=== PATIENT | male | born 1980 | race Caucasian/White ===

== ENCOUNTER 2023-08-07 03:20 | Observation (INO) | payer OTHER ==
[2023-08-07 03:41] LABS: Appearance,Urine Clear (Clear); Bilirubin,Urine Negative (Negative); Blood,Urine Negative (Negative); Color,Urine Light Yellow; Glucose,Urine (UA) Negative (Negative); Ketones,Urine Negative (Negative); Leukocyte Esterase,Urine Negative (Negative); Nitrite,Urine Negative (Negative); PH, Urine 5.5 (5.0-8.0); Protein,Urine Negative (Negative); Specific Gravity,Urine 1.022 (1.001-1.035); Urobilinogen,Urine <2.0 mg/dL (<2.0)
--- NOTE | 2023-08-07 03:51 | ED ---
Abdominal Pain HPI - General Source: patient Mode of arrival: ambulatory Limitations: no limitations <Dick Carrasquillo - Last Filed: 08/07/23 03:50> <Luca Ramos - Last Filed: 08/07/23 06:37> <Toño Waters - Last Filed: 08/07/23 08:55> - General Chief Complaint: Abdominal Pain Stated Complaint: ABD PAIN Time Seen by Provider: 08/07/23 03:50 - History of Present Illness Initial Comments: 43-year-old male presenting with chief complaint of right upper quadrant pain. Has been intermittent over the last 3 days but tonight the pain is constant. Admits to nausea with no vomiting. (Dick Carrasquillo) Dictation was produced using LRN dictation software. please excuse any gr ammatical, word or spelling errors. Chief Complaint: 43-year-old male presents to the ER for further quadrant abdominal pain History of Present Illness: Patient 43-year-old male with co morbiditiesvelocitiesbeenhavingrightupperquadrantabdominalpain.Statesthatit'srib quadrantepigastric.A ssociatedwithnausea.Statesthattodaywasreallybadhehadsomepizzaandstartedtohavesev ererightupperquadran tabdominalpain.Nofever.Nochangesinhisbowelhabits.Deniesanyhistoryofabdominalsurg tanvi. The ROS documented in this emergency department record has been reviewed and confirmed by me. Those systems with pertinent positive or negative responses have been documented in the HPI. All other systems are other negative and/or noncontributory. (Luca Ramos) - Related Data Allergies Allergy/AdvReac Type Severity Reaction Status Date / Time No Known Allergies Allergy Verified 08/07/23 03:26 Review of Systems ROS Other: All systems not noted in ROS Statement are negative. <Dick Carrasquillo - Last Filed: 08/07/23 03:50> ROS Other: All systems not noted in ROS Statement are negative. <Luca Ramos - Last Filed: 08/07/23 06:37> ROS Other: All systems not noted in ROS Statement are negative. <Toño Waters - Last Filed: 08/07/23 08:55> ROS Statement: Those systems with pertinent positive or pertinent negative responses have been documented in the HPI. Past Medical History Past Medical History: No Reported History History of Any Multi-Drug Resistant Organisms: None Reported Past Surgical History: No Surgical Hx Reported Past Psychological History: No Psychological Hx Reported Smoking Status: Never smoker Past Alcohol Use History: None Reported Past Drug Use History: None Reported <Dick Carrasquillo - Last Filed: 08/07/23 03:50> General Exam Limitations: no limitations <Dick Carrasquillo - Last Filed: 08/07/23 03:50> <Luca Ramos - Last Filed: 08/07/23 06:37> - General Exam Comments Initial Comments: Visual Physical Exam Vital signs reviewed General: Well-appearing, nontoxic, no acute distress. Head: Normocephalic, atraumatic Eyes: PERRLA, EOMI ENT: Airway patent Chest: Nonlabored breathing Skin: No visual rash, normal skin tone Neuro: Alert and oriented 3 Musculoskeletal: No gross abnormalities (Dick Carrasquillo) PHYSICAL EXAM: General Impression: Alert and oriented x3, not in acute distress HEENT: Normocephalic atraumatic, extra-ocular movements intact, pupils equal and reactive to light bilaterally, mucous membranes moist. Cardiovascular: Heart regular rate and rhythm Chest: Able to complete full sentences, no retractions, no tachypnea Abdomen: abdomen soft, positive Kolb sign, non-distended, no organomegaly Musculoskeletal: Pulses present and equal in all extremities, no peripheral edema Motor: no focal deficits noted Neurological: CN II-XII grossly intact, no focal motor or sensory deficits noted Skin: Intact with no visualized rashes Psych: Normal affect and mood (Luca Ramos) Course Vital Signs 08/07/23 03:24 Temperature 98.7 F Pulse Rate 74 Respiratory 20 Rate Blood Pressure 189/96 O2 Sat by Pulse 98 Oximetry Medical Decision Making <Dick Carrasquillo - Last Filed: 08/07/23 03:50> - Lab Data Result diagrams: 08/07/23 03:30 08/07/23 03:30 <Luca Ramos - Last Filed: 08/07/23 06:37> - Lab Data Result diagrams: 08/07/23 03:30 08/07/23 03:30 <Toño Waters - Last Filed: 08/07/23 08:55> - Medical Decision Making I performed the quick note portion of this visit electronically signed Dick Carrasquillo PA-C (Dick Carrasquillo) Was pt. sent in by a medical professional or institution (, PA, CAMPUS RECRUITING INTERN, urgent care, hospital, or halfway...) When possible be specific @ -No Did you speak to anyone other than the patient for history (EMS, parent, family, police, friend...)? What history was obtained from this source @ -No Did you review nursing and triage notes (agree or disagree)? Why? @ -I reviewed and agree with nursing and triage notes Were old charts reviewed (outside hosp., previous admission, EMS record, old EKG, old radiological studies, urgent care reports/EKG's, halfway records)? Report findings @ -No old charts were reviewed Differential Diagnosis (chest pain, altered mental status, abdominal pain women, abdominal pain men, vaginal bleeding, musculoskeletal, weakness, fever, dyspnea, syncope, headache, dizziness, GI bleed, back pain, seizure, CVA, palpatations, mental health)? @ -Differential Abdominal Pain Men: Appendicitis, cholecystitis, diverticulosis, ischemic bowel, pancreatitis, hepatitis, UTI, gastroenteritis, AAA, incarcerated hernia, bowel obstruction, constipation, inflammatory bowel, hepatitis, peptic ulcer disease, splenic infarction, perforated viscus, testicular torsion, this is not meant to be an all-inclusive list EKG interpreted by me (3pts min.). @ -None done X-rays interpreted by me (1pt min.). @ -None done CT interpreted by me (1pt min.). @ -None done U/S interpreted by me (1pt. min.). @ -None done What testing was considered but not performed or refused? (CT, X-rays, U/S, labs)? Why? @ -None What meds were considered but not given or refused? Why? @ -None Did you discuss the management of the patient with other professionals (professionals i.e. , JOAN, CAMPUS RECRUITING INTERN, lab, RT, psych nurse, director of social services, field administrative assistant, teacher, protection officer, case packer and sealer)? Give summary @ -No Was smoking cessation discussed for >3mins.? @ -No Was critical care preformed (if so, how long)? @ -No Were there social determinants of health that impacted care today? How? (Homelessness, low income, unemployed, alcoholism, drug addiction, transportation, low edu. Level, literacy, decrease access to med. care, fdc, rehab)? @ -No Was there de-escalation of care discussed even if they declined (Discuss DNR or withdrawal of care, Hospice)? DNR status @ -No What co-morbidities impacted this encounter? (DM, HTN, Smoking, COPD, CAD, Cancer, CVA, ARF, Chemo, Hep., AIDS, mental health diagnosis, sleep apnea, morbid obesity)? @ -None Was patient admitted / discharged? Hospital course, mention meds given and route, prescriptions, significant lab abnormalities, going to OR and other pertinent info. @ -43-year-old male presents with acute right upper quadrant abdominal pain. Vital signs are stable. Laboratory evaluation is unremarkable. Abdominal labs negative. Urinalysis negative. Pending abdominal ultrasound Undiagnosed new problem with uncertain prognosis? @ -No Drug Therapy requiring intensive monitoring for toxicity (Heparin, Nitro, Insulin, Cardizem)? @ -No Were any procedures done? @ -No Diagnosis/symptom? Acute, or Chronic, or Acute on Chronic? Uncomplicated (without systemic symptoms) or Complicated (systemic symptoms)? @ -Acute abdominal pain Side effects of treatment? @ -No Exacerbation, Progression, or Severe Exacerbation? @ -No Poses a threat to life or bodily function? How? (Chest pain, USA, CO, pneumonia, PE, COPD, DKA, ARF, appy, cholecystitis, CVA, Diverticulitis, Homicidal, Suicidal, threat to staff... and all critical care pts) @ -yes (Luca Ramos) Was patient admitted / discharged? Hospital course, mention meds given and route, prescriptions, significant lab abnormalities, going to OR and other pertinent info. @ -Patient was signed out to me by Dr. Ramos and ultrasound came back and it showed acute cholecystitis I spoke with the surgeon furniture sales consultant Dr. Nino and he agreed to admit the patient I started the patient had Biaxin admitted the patient wrote admitting orders Undiagnosed new problem with uncertain prognosis? @ -No Drug Therapy requiring intensive monitoring for toxicity (Heparin, Nitro, Insulin, Cardizem)? @ -No Were any procedures done? @ -No Diagnosis/symptom? @ -Acute cholecystitis Acute, or Chronic, or Acute on Chronic? @ -Acute Uncomplicated (without systemic symptoms) or Complicated (systemic symptoms)? @ -Complicated Side effects of treatment? @ -No Exacerbation, Progression, or Severe Exacerbation? @ -No Poses a threat to life or bodily function? How? (Chest pain, USA, CO, pneumonia, PE, COPD, DKA, ARF, appy, cholecystitis, CVA, Diverticulitis, Homicidal, Suicidal, threat to staff... and all critical care pts) @ -Yes this can lead to sepsis and is urinating dysfunction (Toño Waters) - Lab Data Lab Results 08/07/23 08/07/23 08/07/23 Range/Units 03:30 03:30 03:30 WBC 11.2 H (3.8-10.6) k/uL RBC 5.33 (4.30-5.90) m/uL Hgb 15.5 (13.0-17.5) gm/dL Hct 47.8 (39.0-53.0) % MCV 89.7 (80.0-100.0) fL MCH 29.1 (25.0-35.0) pg MCHC 32.5 (31.0-37.0) g/dL RDW 12.9 (11.5-15.5) % Plt Count 319 (150-450) k/uL MPV 7.2 Neutrophils % 63 % Lymphocytes % 26 % Monocytes % 5 % Eosinophils % 3 % Basophils % 1 % Neutrophils # 7.1 (1.3-7.7) k/uL Lymphocytes # 2.9 (1.0-4.8) k/uL Monocytes # 0.5 (0-1.0) k/uL Eosinophils # 0.4 (0-0.7) k/uL Basophils # 0.1 (0-0.2) k/uL Sodium 144 (137-145) mmol/L Potassium 4.4 (3.5-5.1) mmol/L Chloride 111 H (98-107) mmol/L Carbon Dioxide 27 (22-30) mmol/L Anion Gap 6 mmol/L BUN 23 H (9-20) mg/dL Creatinine 0.90 (0.66-1.25) mg/dL Est GFR (CKD-EPI)AfAm >90 (>60 ml/min/1.73 sqM) Est GFR (CKD-EPI)NonAf >90 (>60 ml/min/1.73 sqM) Glucose 114 H (74-99) mg/dL Calcium 9.8 (8.4-10.2) mg/dL Total Bilirubin 0.3 (0.2-1.3) mg/dL AST 30 (17-59) U/L ALT 55 H (4-49) U/L Alkaline Phosphatase 72 (38-126) U/L Total Protein 7.2 (6.3-8.2) g/dL Albumin 4.5 (3.5-5.0) g/dL Amylase 61 (30-110) U/L Lipase 74 (23-300) U/L Urine Color Light Yellow Urine Appearance Clear (Clear) Urine pH 5.5 (5.0-8.0) Ur Specific Krebs 1.022 (1.001-1.035) Urine Protein Negative (Negative) Urine Glucose (UA) Negative (Negative) Urine Ketones Negative (Negative) Urine Blood Negative (Negative) Urine Nitrite Negative (Negative) Urine Bilirubin Negative (Negative) Urine Urobilinogen <2.0 (<2.0) mg/dL Ur Leukocyte Esterase Negative (Negative) Disposition <Dick Carrasquillo - Last Filed: 08/07/23 03:50> <Luca Ramos - Last Filed: 08/07/23 06:37> Time of Disposition: 08:55 <Toño Waters - Last Filed: 08/07/23 08:55> Clinical Impression: Acute cholecystitis Disposition: ADMITTED IP TO THIS [facility] Referrals: Pernell Esparza DO [Primary Care Provider] - 1-2 days
[2023-08-07 03:53] LABS: Basophils # (A) 0.1 k/uL (0-0.2); Basophils % (A) 1 %; Eosinophils # (A) 0.4 k/uL (0-0.7); Eosinophils % (A) 3 %; HCT 47.8 % (39.0-53.0); HGB 15.5 gm/dL (13.0-17.5); Lymphocytes # (A) 2.9 k/uL (1.0-4.8); Lymphocytes % (A) 26 %; MCH 29.1 pg (25.0-35.0); MCHC 32.5 g/dL (31.0-37.0); MCV 89.7 fL (80.0-100.0); Mean Platelet Volume 7.2; Monocytes # (A) 0.5 k/uL (0-1.0); Monocytes % (A) 5 %; Neutrophils # (A) 7.1 k/uL (1.3-7.7); Neutrophils % (A) 63 %; Platelet Count 319 k/uL (150-450); RBC 5.33 m/uL (4.30-5.90); RDW 12.9 % (11.5-15.5); WBC 11.2 k/uL (3.8-10.6)
[2023-08-07 04:27] LABS: ALT 55 U/L (4-49); AST 30 U/L (17-59); African American GFR (CKD) >90 (>60 ml/min/1.73 sqM); Albumin 4.5 g/dL (3.5-5.0); Alkaline Phosphatase 72 U/L (38-126); Amylase 61 U/L (30-110); Anion Gap 6 mmol/L; Blood Urea Nitrogen 23 mg/dL (9-20); Calcium 9.8 mg/dL (8.4-10.2); Carbon Dioxide 27 mmol/L (22-30); Chloride 111 mmol/L (98-107); Glucose 114 mg/dL (74-99); Lipase 74 U/L (23-300); Non-African American GFR(CKD) >90 (>60 ml/min/1.73 sqM); Potassium 4.4 mmol/L (3.5-5.1); Sodium 144 mmol/L (137-145); Total Bilirubin 0.3 mg/dL (0.2-1.3); Total Protein 7.2 g/dL (6.3-8.2)
--- NOTE | 2023-08-07 07:51 | US ---
EXAMINATION TYPE: US abdomen limited DATE OF EXAM: 08/07/2023 COMPARISON: NONE CLINICAL INDICATION: Male, 43 years old with history of epigastric pain, ruq pain; RUQ pain n/v TECHNIQUE: Multiple sonographic images of the right upper quadrant are obtained. FINDINGS: EXAM MEASUREMENTS: Liver Length: 14.3 cm Gallbladder Wall: 0.6 cm CBD: obscured by shadowing stone Right Kidney: 11.6x4.7x5.8 cm JUNIOR FINANCIAL ANALYST NOTES: Pancreas: Tail obscured by overlying bowel gas Liver: increased echogenicity and attenuation Gallbladder: several stones measuring up to 2.3cm stone near neck of GB, two adhered stones vs sludg e located at fundus. Pericholecystic fluid is present adjacent to thickened GB wall Evidence for sonographic Kolb's sign: No CBD: Obscured by shadowing stone and bowel gas Right Kidney: No hydronephrosis or masses seen exam slightly limited by body habitus, bowel, and shadowing IMPRESSION: Despite the negative sonographic Kolb sign, the findings are consistent with acute cholecystitis wi th cholelithiasis, gallbladder wall thickening and pericholecystic fluid. Evaluation of the common bi le duct and pancreas is limited secondary to bowel gas. There is no intrahepatic biliary ductal dilat ation. There is increased attenuation of the liver parenchyma consistent with fatty infiltration.
--- NOTE | 2023-08-07 07:52 | XR ---
KUB. HISTORY: Abdominal pain. COMPARISON: None. TECHNIQUE: 2 upright views of the abdomen were obtained. FINDINGS: The lung bases are clear. There is no free intraperitoneal air beneath the diaphragm. The bowel gas pattern is nonspecific and there is no evidence of obstruction. No suspicious abdominal or pelvic calcifications are seen. The osseous structures are intact. IMPRESSION: Nonspecific abdomen without evidence of free air or obstruction.
[2023-08-07] MEDS ORDERED: PIPERACILLIN-TAZOBACTAM 3.375 GM in SODIUM CHLORIDE 0.9% 100 ML IVPB STA (08:49)
[2023-08-07] MEDS ORDERED: SODIUM CHLORIDE 0.9% 1,000 ML IV ONE (08:55)
--- NOTE | 2023-08-07 16:30 | P.GSHP ---
History of Present Illness H&P Date: 08/07/23 Chief Complaint: RUQ pain 43-year-old male presenting with chief complaint of right upper quadrant pain. Has been intermittent over the last 3 days but tonight the pain is constant. Admits to nausea with no vomiting. - Constitutional Constitutional: Reports as per HPI Past Medical History Past Medical History: No Reported History History of Any Multi-Drug Resistant Organisms: None Reported Past Surgical History: No Surgical Hx Reported Past Psychological History: No Psychological Hx Reported Smoking Status: Never smoker Past Alcohol Use History: None Reported Past Drug Use History: None Reported Medications and Allergies Home Medications Medication Instructions Recorded Confirmed Type No Known Home Medications 08/07/23 08/07/23 History Allergies Allergy/AdvReac Type Severity Reaction Status Date / Time No Known Allergies Allergy Verified 08/07/23 11:12 Surgical - Exam Vital Signs Temp Pulse Resp BP Pulse Ox 98.7 F 74 20 189/96 98 08/07/23 03:24 08/07/23 03:24 08/07/23 03:24 08/07/23 03:24 08/07/23 03:24 - General well developed, no distress, obese - Eyes PERRL, normal ocular movement, no icteric - Neck no masses, trachea midline, no lymphadectomy - Respiratory normal expansion, normal respiratory effort, clear to auscultation - Cardiovascular Rhythm: regular Heart Sounds: normal: S1, S2 - Abdomen Abdomen: soft, no non tender, bowel sounds, no guarding, no rebound, no distended - Neurologic normal coordination, normal sensation - Psychiatric oriented to time, oriented to person, oriented to place, speech is normal, memory intact Results - Labs 08/07/23 03:30 08/07/23 03:30 Abnormal Lab Results - Last 24 Hours (Table) 08/07/23 08/07/23 Range/Units 03:30 03:30 WBC 11.2 H (3.8-10.6) k/uL Chloride 111 H (98-107) mmol/L BUN 23 H (9-20) mg/dL Glucose 114 H (74-99) mg/dL ALT 55 H (4-49) U/L Diabetes panel 08/07/23 Range/Units 03:30 Sodium 144 (137-145) mmol/L Potassium 4.4 (3.5-5.1) mmol/L Chloride 111 H (98-107) mmol/L Carbon Dioxide 27 (22-30) mmol/L BUN 23 H (9-20) mg/dL Creatinine 0.90 (0.66-1.25) mg/dL Glucose 114 H (74-99) mg/dL Calcium 9.8 (8.4-10.2) mg/dL AST 30 (17-59) U/L ALT 55 H (4-49) U/L Alkaline Phosphatase 72 (38-126) U/L Total Protein 7.2 (6.3-8.2) g/dL Albumin 4.5 (3.5-5.0) g/dL Calcium panel 08/07/23 Range/Units 03:30 Calcium 9.8 (8.4-10.2) mg/dL Albumin 4.5 (3.5-5.0) g/dL Pituitary panel 08/07/23 Range/Units 03:30 Sodium 144 (137-145) mmol/L Potassium 4.4 (3.5-5.1) mmol/L Chloride 111 H (98-107) mmol/L Carbon Dioxide 27 (22-30) mmol/L BUN 23 H (9-20) mg/dL Creatinine 0.90 (0.66-1.25) mg/dL Glucose 114 H (74-99) mg/dL Calcium 9.8 (8.4-10.2) mg/dL Adrenal panel 08/07/23 Range/Units 03:30 Sodium 144 (137-145) mmol/L Potassium 4.4 (3.5-5.1) mmol/L Chloride 111 H (98-107) mmol/L Carbon Dioxide 27 (22-30) mmol/L BUN 23 H (9-20) mg/dL Creatinine 0.90 (0.66-1.25) mg/dL Glucose 114 H (74-99) mg/dL Calcium 9.8 (8.4-10.2) mg/dL Total Bilirubin 0.3 (0.2-1.3) mg/dL AST 30 (17-59) U/L ALT 55 H (4-49) U/L Alkaline Phosphatase 72 (38-126) U/L Total Protein 7.2 (6.3-8.2) g/dL Albumin 4.5 (3.5-5.0) g/dL - Imaging CT scan - abdomen: image reviewed US - abdomen: report reviewed (sludge and stones, thickened wall, negative pena sign), image reviewed Assessment and Plan (1) Acute cholecystitis Current Visit: Yes Status: Acute Code(s): K81.0 - ACUTE CHOLECYSTITIS SNOMED Code(s): 56157454 Plan: patint eat diet, so will have him NPO P MN probably surgery tomorrow pain managment IVF patint is eating at bed side now.
[2023-08-07] MEDS ORDERED: PIPERACILLIN-TAZOBACTAM 3.375 GM in SODIUM CHLORIDE 0.9% 100 ML IVPB SCH (18:00)
[2023-08-07] MEDS: PIPERACILLIN-TAZOBACTAM 3.375 GM in SODIUM CHLORIDE 0.9% 100 ML IVPB SCH (21:13)
[2023-08-08] MEDS: PIPERACILLIN-TAZOBACTAM 3.375 GM in SODIUM CHLORIDE 0.9% 100 ML IVPB SCH ×3 (06:01→21:05)
--- NOTE | 2023-08-08 10:38 | P.PN ---
Subjective Progress Note Date: 08/08/23 The patient feels better today. His right upper quadrant pain has improved. On exam vital signs are stable. Abdomen soft. There is moderate tenderness. Patient is scheduled for laparoscopic cholestatic in the a.m. Objective - Vital Signs Vital signs: Vital Signs Temp 98.1 F 08/08/23 06:57 Pulse 61 08/08/23 06:57 Resp 16 08/08/23 06:57 BP 119/71 08/08/23 06:57 Pulse Ox 98 08/08/23 06:57 FiO2 Intake & Output 08/07/23 08/08/23 08/08/23 18:59 06:59 18:59 Intake Total 240 100 Balance 240 100 Weight 92.986 kg Intake: Intake, IV Titration 100 Amount Piperacillin-Tazobactam 3 100 .375 gm In Sodium Chloride 0.9% 100 ml @ 25 mls/hr IVPB Q8H [facility] Rx#: [id number] Oral 240 Other: # Voids 4 - Labs CBC & Chem 7: 08/07/23 03:30 08/07/23 03:30
[2023-08-09] MEDS: PIPERACILLIN-TAZOBACTAM 3.375 GM in SODIUM CHLORIDE 0.9% 100 ML IVPB SCH ×2 (05:50→14:40)
[2023-08-09 08:41] LABS: Basophils # (A) 0.1 k/uL (0-0.2); Basophils % (A) 1 %; Eosinophils # (A) 0.3 k/uL (0-0.7); Eosinophils % (A) 3 %; HCT 45.5 % (39.0-53.0); HGB 15.1 gm/dL (13.0-17.5); Lymphocytes # (A) 2.9 k/uL (1.0-4.8); Lymphocytes % (A) 28 %; MCH 29.7 pg (25.0-35.0); MCHC 33.2 g/dL (31.0-37.0); MCV 89.6 fL (80.0-100.0); Mean Platelet Volume 6.9; Monocytes # (A) 0.4 k/uL (0-1.0); Monocytes % (A) 4 %; Neutrophils # (A) 6.6 k/uL (1.3-7.7); Neutrophils % (A) 63 %; Platelet Count 282 k/uL (150-450); RBC 5.08 m/uL (4.30-5.90); RDW 12.6 % (11.5-15.5); WBC 10.5 k/uL (3.8-10.6)
[2023-08-09 08:56] LABS: African American GFR (CKD) >90 (>60 ml/min/1.73 sqM); Anion Gap 9 mmol/L; Blood Urea Nitrogen 16 mg/dL (9-20); Calcium 9.2 mg/dL (8.4-10.2); Carbon Dioxide 23 mmol/L (22-30); Chloride 110 mmol/L (98-107); Glucose 101 mg/dL (74-99); Non-African American GFR(CKD) >90 (>60 ml/min/1.73 sqM); Potassium 3.9 mmol/L (3.5-5.1); Sodium 142 mmol/L (137-145)
--- NOTE | 2023-08-09 11:36 | P.PN ---
Subjective Progress Note Date: 08/09/23 This is a 43-year-old gentleman admitted with acute cholecystitis, npo, scheduled for laparoscopic cholecystectomy today. Maintained on IV fluid hydration. Currently denies pain. No current nausea or vomiting .Denies chest pain, palpitations or shortness of breath. Afebrile, normal WBC. BUN 16, creatinine 0.93. Objective - Vital Signs Vital signs: Vital Signs Temp 98.1 F 08/09/23 07:31 Pulse 68 08/09/23 08:00 Resp 18 08/09/23 08:00 BP 135/86 08/09/23 07:31 Pulse Ox 97 08/09/23 07:31 FiO2 Intake & Output 08/08/23 08/09/23 08/09/23 18:59 06:59 18:59 Other: Voiding Method Toilet # Voids 4 - Exam PHYSICAL EXAM: VITAL SIGNS: As above GENERAL: Alert and oriented 3, sitting up in chair, no acute distress HEENT: Normocephalic, Conjunctivae normal. eyes normal. NECK: Supple, No JVD. CARDIOVASCULAR: S1, S2 regular. No murmur RESPIRATION: Unlabored, equal air entry,CTA. ABDOMEN: Soft, nondistended, diffuse right upper quadrant tenderness, no guarding, positive bowel sounds LEGS: No edema. no swelling NERVOUS SYSTEM: Cranial N 2-12 grossly normal. No focal deficits. Strength and sensation grossly intact. Skin: warm and dry, no rash - Labs CBC & Chem 7: 08/09/23 08:28 08/09/23 08:28 Labs: Abnormal Lab Results - Last 24 Hours (Table) 08/09/23 Range/Units 08:28 Chloride 110 H (98-107) mmol/L Glucose 101 H (74-99) mg/dL Microbiology - Last 24 Hours (Table) 08/07/23 10:24 Blood Culture - Preliminary Blood 08/07/23 10:19 Blood Culture - Preliminary Blood Assessment and Plan Assessment: Acute cholecystitis reported per abdominal ultrasound Obesity, BMI 30 Plan: Continue on current medication regime ,monitoring and symptomatic treatment. NPO, surgery pending. Aggressive pulmonary toileting with incentive spirometer ordered. Pain management. The impression and plan of care has been dictated as directed. : I performed a history and examination of this patient, discussed the same with the dictator. I agree with the dictator's note ,documented as a scribe. Any additional findings or plans will be noted.
[2023-08-09] MEDS ORDERED: SODIUM CHLORIDE 0.9% 1,000 ML IV ONE (13:12)
[2023-08-09] MEDS ORDERED: ONDANSETRON 4 MG/2 ML VIAL ONE (13:26)
[2023-08-09] MEDS ORDERED: ONDANSETRON 4 MG/2 ML VIAL IVP ONE (13:32)
[2023-08-09] MEDS ORDERED: DEXAMETHASONE SOD PHOSPHATE 4 MG/ML 1 ML VIAL IVP ONE (13:33)
[2023-08-09] MEDS ORDERED: LIDOCAINE 2%-EPI 1:100,000 20 ML VIAL SQ ONE ×2 (13:37→14:45)
[2023-08-09] MEDS ORDERED: HYDROmorphone 1 MG/ML 1 ML SYRINGE IVP PRN ×2 (14:03→15:30)
[2023-08-09] MEDS ORDERED: ONDANSETRON 4 MG/2 ML VIAL IVP PRN ×2 (14:03→15:30)
--- NOTE | 2023-08-09 14:03 | P.PN ---
Subjective Progress Note Date: 08/09/23 CHIEF COMPLAINT: Right upper quadrant abdominal pain HISTORY OF PRESENT ILLNESS: Patient sitting up at bedside chair. Does report pain is better today. Denies any nausea or vomiting. Denies any chest pain or shortness of breath. Afebrile. WBC is down from 11.2-10.5 hemoglobin 15.47528 potassiums are 0.9 creatinine 0.3 PHYSICAL EXAM: VITAL SIGNS: Reviewed. GENERAL: Well-developed in no acute distress. ABDOMEN: Soft. Nondistended. NEUROLOGIC: Alert and oriented. Cranial nerves II through XII grossly intact. ASSESSMENT: 1. Acute cholecystitis PLAN: -Patient is scheduled for laparoscopic cholecystectomy today with Dr. shafer Physician Support Coordinator note has been reviewed by physician. Signing provider agrees with the documented findings, assessment, and plan of care. Objective - Vital Signs Vital signs: Vital Signs Temp 98.1 F 08/09/23 07:31 Pulse 68 08/09/23 08:00 Resp 18 08/09/23 08:00 BP 135/86 08/09/23 07:31 Pulse Ox 97 08/09/23 07:31 FiO2 Intake & Output 08/08/23 08/09/23 08/09/23 18:59 06:59 18:59 Other: Voiding Method Toilet # Voids 4 - Labs CBC & Chem 7: 08/09/23 08:28 08/09/23 08:28 Labs: Abnormal Lab Results - Last 24 Hours (Table) 08/09/23 Range/Units 08:28 Chloride 110 H (98-107) mmol/L Glucose 101 H (74-99) mg/dL Microbiology - Last 24 Hours (Table) 08/07/23 10:24 Blood Culture - Preliminary Blood 08/07/23 10:19 Blood Culture - Preliminary Blood
[2023-08-09] MEDS ORDERED: SODIUM CHLORIDE 0.9% 1,000 ML IV SCH (14:15)
[2023-08-09] MEDS ORDERED: SODIUM CHLORIDE 0.9% 100 ML BAG ONE (14:21)
[2023-08-09] MEDS ORDERED: GLYCOPYRROLATE 0.2 MG/ML 2 ML VIAL ONE (14:21)
[2023-08-09] MEDS ORDERED: HEPARIN SODIUM,PORCINE 5,000 UNIT/ML 1 ML VIAL ONE (14:21)
[2023-08-09] MEDS ORDERED: ROCURONIUM 10 MG/ML (5 ML VIAL) IV ONE (14:21)
[2023-08-09] MEDS ORDERED: ceFAZolin 1,000 MG VIAL ONE (14:21)
[2023-08-09] MEDS ORDERED: LIDOCAINE 1% INJ 10MG/ML (20 ML MDV) ONE (14:21)
[2023-08-09] MEDS ORDERED: PROPOFOL 10 MG/ML 20 ML VIAL IV ONE (14:21)
[2023-08-09] MEDS ORDERED: KETOROLAC 15 MG/ML 1 ML VIAL ONE (14:21)
[2023-08-09] MEDS ORDERED: DEXAMETHASONE SOD PHOSPHATE 10 MG/ML 1 ML VIAL ONE (14:21)
[2023-08-09] MEDS ORDERED: NEOSTIGMINE 1 MG/ML 10 ML VIAL ONE (14:21)
[2023-08-09] MEDS ORDERED: SUCCINYLCHOLINE CHLORIDE 200 MG/10 ML VIAL IV ONE (14:21)
[2023-08-09] MEDS ORDERED: fentaNYL (PF) 50 MCG/ML 2 ML AMP ONE (14:21)
[2023-08-09] MEDS ORDERED: ESMOLOL 100 MG/10 ML VIAL ONE (14:21)
[2023-08-09] MEDS ORDERED: MIDAZOLAM 2 MG/2 ML VIAL ONE (14:21)
[2023-08-09] MEDS ORDERED: SODIUM CHLORIDE 0.9% 100 ML with ceFAZolin 2,000 MG IV ONE ×2 (14:45)
--- NOTE | 2023-08-09 15:19 | P.OP ---
Date of Procedure: 08/09/23 Preoperative Diagnosis: Cholecystitis cholecystitis Postoperative Diagnosis: Cholecystitis :Cholecystitis Cholelithiasis Procedure(s) Performed: Laparoscopic cholecystectomy Anesthesia: GETA Estimated Blood Loss (ml): 5 Pathology: other (Gallbladder) Condition: stable Disposition: PACU Description of Procedure: The patient was placed on the operating table. The patient received a general endotracheal tube anesthesia. The patients abdomen was prepped and draped in the usual sterile fashion. Through an infraumbilical stab incision, the fascia of the anterior abdominal wall was grasped with a pair of Kochers and then the Veress needle was placed in the peritoneal cavity. Position of the Veress needle was confirmed with positive drop test. The abdomen was then insufflated. After adequate insufflation, the 10 mm trocar was placed in the peritoneal cavity. Following this the laparoscope was placed in the peritoneal cavity. The patient was placed in the head-up, right side up position and then a 5 mm trocar was placed in the right lateral and right subcostal position under direct visualization. A 8 mm trocar was placed in the epigastric position. The gallbladder was grasped in the fundus and infundibulum. Traction on the gallbladder was placed in the lateral and the cephalad positions. The triangle of Calot was visualized.. The cystic duct was bluntly dissected until the union of the cystic duct and common bile duct was seen. A critical view of safety was achieved. The cystic duct was then divided and sealed with the Harmonic scissors. A PDS Endoloop was then placed throughout the cystic duct stump. The cystic artery divided and sealed with the Harmonic scissors. The gallbladder was then removed from the liver bed using Harmonic scissors. The gallbladder was then extracted through the epigastric port site. Operative field was checked for any bleeding spots and Harmonic scissors was used to coagulate the liver bed. The abdomen was irrigated. The trocars were removed. The skin was closed using interrupted 3-0 Vicryl suture. Dermabond dressing were applied. The patient tolerated the procedure well.
[2023-08-09] MEDS ORDERED: HYDROcodone/APAP 7.5-325MG 1 EACH TAB PO PRN (15:30)
[2023-08-09 15:33] VITALS: TEMP 100.1
[2023-08-09 16:21] VITALS: RESP 14
[2023-08-09 17:32] VITALS: BP 129/77; PULSE 82
== END 2023-08-09 18:13 | disposition home or self-care (01) ==
LOC: EC 03:20 → 6NMEDSUR 08:55 → 4SSUR 13:48
PROVIDERS: ADMIT Colon & Rectal Surgery; ATTEND Colon & Rectal Surgery
DX: K80.12 Calculus of gallbladder with acute and chronic cholecystitis without obstruction (principal); R06.83 Snoring
CPT/HCPCS: 99285; 36415; 88304; 80053; 80048; 82150; 83690; 85025 ×2; 81003; 87040; 74018; 76705; 47562; G0378 ×4; J2543 ×3; J2250; J0330; J1644; J1100 ×2; J2710; J2405; J0690; J2001; J3010; J1885; J2704; J1805

== ENCOUNTER 2023-11-15 12:49 | Day surgery (SDC) | payer OTHER ==
[2023-11-15] MEDS: LACTATED RINGERS 1,000 ML IV SCH (13:07)
[2023-11-15] MEDS ORDERED: PROPOFOL 10 MG/ML 20 ML VIAL IV ONE (13:45)
--- NOTE | 2023-11-15 13:49 | P.GSHP ---
History of Present Illness H&P Date: 11/15/23 Chief Complaint: rectal bleeding, hemorrhoids this a 43-year-old male presents today for colonoscopy. Patient issues with rectal bleeding. Patient's history of hemorrhoids. Past Medical History Past Medical History: No Reported History Additional Past Medical History / Comment(s): Blood on toilet tissue History of Any Multi-Drug Resistant Organisms: None Reported Past Surgical History: Cholecystectomy Past Anesthesia/Blood Transfusion Reactions: No Reported Reaction Smoking Status: Never smoker - Past Family History Father Family Medical History: No Reported History Mother Family Medical History: No Reported History Medications and Allergies Home Medications Medication Instructions Recorded Confirmed Type Acetaminophen Tab [Tylenol] 650 mg PO Q6H #30 tab 08/09/23 11/15/23 Rx Ibuprofen [Motrin] 600 mg PO Q6HR PRN #40 tab 08/09/23 11/11/23 Rx Allergies Allergy/AdvReac Type Severity Reaction Status Date / Time No Known Allergies Allergy Verified 11/15/23 13:16 Surgical - Exam Vital Signs Temp Pulse Resp BP Pulse Ox 98.6 F 97 18 136/77 96 11/15/23 13:08 11/15/23 13:08 11/15/23 13:08 11/15/23 13:08 11/15/23 13:08 - General well developed, well nourished, no distress - Eyes PERRL - ENT normal pinna - Neck no masses - Respiratory normal expansion - Cardiovascular Rhythm: regular - Abdomen Abdomen: soft, non tender Assessment and Plan Assessment: rectal bleeding with history of hemorrhoids. We'll perform colonoscopy.
[2023-11-15 13:50] VITALS: TEMP 98.6
--- NOTE | 2023-11-15 14:05 | P.OP ---
Date of Procedure: 11/15/23 Preoperative Diagnosis: rectal bleeding Postoperative Diagnosis: internal hemorrhoids Mild diverticulosis Procedure(s) Performed: colonoscopy Anesthesia: LOGAN Surgeon: Kaushal Mayo Pathology: none sent Condition: stable Disposition: PACU Description of Procedure: the patient's placed on the endoscopy table in the lateral position. Pascual IV sedation. Digital rectal exam performed. This revealed internal hemorrhoids. The possible colonoscope was then placed patient anus and passed throughout the entire colon. The ileocecal valve was visualized. The cecum, ascending and transverse colon appeared normal. The descending; was mild diverticular changes. Scope was then brought back the rectum and this appeared normal. Scope withdrawn to anus and internal hemorrhage noted. There is no evidence of any active GI bleed. Presumed patient may have had bleeding from internal hemorrhoids.
[2023-11-15 14:35] VITALS: BP 125/86; PULSE 77; RESP 16
== END 2023-11-15 14:41 | disposition home or self-care (01) ==
LOC: ORWHC2ENDO 12:49
PROVIDERS: ATTEND Surgery
DX: K57.30 Diverticulosis of large intestine without perforation or abscess without bleeding (principal); K62.5 Hemorrhage of anus and rectum; K64.8 Other hemorrhoids; Z90.49 Acquired absence of other specified parts of digestive tract; Z79.899 Other long term (current) drug therapy
CPT/HCPCS: 45378; J2704